=== PATIENT | female | born 1995 | race African-American/Black ===

== ENCOUNTER 2017-06-01 17:26 | Emergency (ER) | payer OTHER ==
[2017-06-01 17:51] VITALS: BP 117/62
--- NOTE | 2017-06-14 08:30 | UC ---
Ear Complaint HPI - HPI Summary HPI Summary: Patient presents with one day onset right ear pain and fever. He denies any change in hearing, ear drainage, injury or trauma. He has had URI symptoms as well. He denies headache, fever, chillls, nausea, vomiting or diarrhea. - History of Current Complaint Chief Complaint: UCEar Stated Complaint: EAR ACHE Time Seen by Provider: 06/01/17 18:26 Hx Obtained From: Patient Hx Last Menstrual Period: 05/12/2017 Onset/Duration: Gradual Onset, Lasting Hours Severity Initially: Mild Severity Currently: Moderate Pain Intensity: 2 Pain Scale Used: 0-10 Numeric Aggravating Factors: Cold Alleviating Factors: OTC Meds Associated Signs/Symptoms: Positive: URI Symptoms - Allergies/Home Medications Allergies/Adverse Reactions: Allergies Allergy/AdvReac Type Severity Reaction Status Date / Time No Known Allergies Allergy Verified 06/01/17 17:51 Home Medications: Home Medications Ibuprofen [Advil] 400 mg PO 06/01/17 [History] PMH/Surg Hx/FS Hx/Imm Hx Previously Healthy: Yes - Surgical History Surgical History: None - Family History Known Family History: Positive: None - Social History Occupation: Employed Full-time Alcohol Use: Occasionally Substance Use Type: None Smoking Status (MU): Light Every Day Tobacco Smoker Review of Systems Constitutional: Negative Skin: Negative Eyes: Negative ENT: Ear Ache, Nasal Discharge, Sinus Congestion Respiratory: Negative Cardiovascular: Negative Gastrointestinal: Negative Genitourinary: Negative Motor: Negative Neurovascular: Negative Musculoskeletal: Negative Neurological: Negative Psychological: Negative Is Patient Immunocompromised?: No All Other Systems Reviewed And Are Negative: Yes Physical Exam Triage Information Reviewed: Yes Appearance: Well-Appearing Vital Signs: Initial Vital Signs Temp 99.1 F 06/01/17 17:45 Pulse 102 06/01/17 17:45 Resp 16 06/01/17 17:45 BP 117/62 06/01/17 17:45 Pulse Ox 99 06/01/17 17:45 Vital Signs Reviewed: Yes Eye Exam: Normal ENT: Positive: TM bulging, TM dull, TM red Dental Exam: Normal Neck exam: Normal Neck: Positive: 1 Respiratory Exam: Normal Cardiovascular Exam: Normal Abdominal Exam: Normal Skin Exam: Normal Ear Complaint Course/Dx - Course Course Of Treatment: Patient presents with complaints of right ear pain, and fever. Clinical findings are consistent with Right otitis media, she was treated with Zpk. - Differential Dx/Diagnosis Differential Diagnosis/HQI/PQRI: Otitis Media Provider Diagnoses: otitis media Discharge - Discharge Plan Condition: Stable Disposition: HOME Prescriptions: Azithromycin TAB* [Zithromax TAB (Z-PENG) 250 mg #6 tabs] 250 mg PO DAILY #6 tab Patient Education Materials: Ear Infection (ED) Referrals: No Primary Care Phys,NOPCP [Primary Care Provider] -
== END 2017-06-01 18:40 | disposition home or self-care (01) ==
LOC: UCEAST 17:26
DX: H66.91 Otitis media, unspecified, right ear (principal); Z72.0 Tobacco use
CPT/HCPCS: 99202; G0463